=== PATIENT | female | born 1950 ===

== ENCOUNTER → 2023-01-07 | Outpatient (CLI) | payer MEDICARE, OTHER ==
[~2023-01-07] VITALS: Ht 157.5 cm; Wt 62.5 kg
[~2023-01-07] MED LIST: AMLO-257 PO; ASPI-1450 PO; FOLI0.4T6 PO; HYDR500 PO
[2023-01-07 15:12] VITALS: BP 136/80; PULSE 84; RESP 18; TEMP 98.8; O2SAT 99
== END | disposition home or self-care (01) ==
LOC: SRCNTR 14:40
PROVIDERS: ATTEND Internal Medicine
DX: R94.31 Abnormal electrocardiogram [ECG] [EKG] (principal); I12.9 Hypertensive chronic kidney disease with stage 1 through stage 4 chronic kidney disease, or unspecified chronic kidney disease; N18.9 Chronic kidney disease, unspecified; E78.5 Hyperlipidemia, unspecified; E83.52 Hypercalcemia
CPT/HCPCS: 93005; G0463

== ENCOUNTER → 2023-01-20 | Outpatient (CLI) | payer MEDICARE, OTHER | END | disposition home or self-care (01) | LOC: RADPV 12:49 | PROVIDERS: ATTEND Internal Medicine | DX: R94.31 Abnormal electrocardiogram [ECG] [EKG] (principal) | CPT/HCPCS: 93306 ==